=== PATIENT | male | born 1940 | race Caucasian/White ===

== ENCOUNTER → 2017-02-11 | Outpatient (CLI) | payer BC ==
[~2017-02-11] MED LIST: ASPI81TA21 PO; DOCU-94 PO; EMPA1TAB PO; FISHOIL PO; IMDSR30 PO; LSN40 PO; METO-217 PO; PRLSR20 PO; ZINC1TAB PO; ZLF/50 PO
[2017-02-11 11:14] LABS: ESTIMATED AVERAGE GLUCOSE 160 mg/dl; HA1C FLAG Normal (Normal)
[2017-02-11 11:16] LABS: ALT/SGPT 29 U/L (12-78); AST/SGOT 16 U/L (15-37); BLOOD UREA NITROGEN 18 mg/dl (7-18); BUN/CREATININE RATIO 16.5 (10-20); CARBON DIOXIDE 29 mmol/L (21-32); CHLORIDE 104 mmol/L (98-107); CHOLESTEROL 244 mg/dl (0-200); GLUCOSE 134 mg/dl (70-99); POTASSIUM 4.2 mmol/L (3.5-5.1); SODIUM 141 mmol/L (136-145); TRIGLYCERIDES 143 mg/dl (0-150); VERY LOW DENSITY LIPOPROT CALC 29 mg/dl
[2017-02-11 11:17] LABS: CALCIUM 9.6 mg/dl (8.5-10.1)
[2017-02-11 11:26] LABS: HDL CHOLESTEROL 41 mg/dl; LDL CHOLESTEROL CALCULATED 174 mg/dl; PROSTATE SPECIFIC ANTIGEN 0.647 ng/ml (0.000-4.000)
== END | disposition home or self-care (01) ==
LOC: C.LABBC 07:35
PROVIDERS: ATTEND Internal Medicine
DX: I25.10 Atherosclerotic heart disease of native coronary artery without angina pectoris (principal)

== ENCOUNTER → 2017-07-08 | Outpatient (CLI) | payer BC ==
[2017-07-08 10:57] LABS: BLOOD UREA NITROGEN 20 mg/dl (7-18); CREATININE 1.17 mg/dl (0.60-1.40); GLUCOSE 145 mg/dl (70-99)
[2017-07-08 10:58] LABS: ALT/SGPT 24 U/L (12-78); AST/SGOT 14 U/L (15-37); BUN/CREATININE RATIO 17.2 (10-20); CALCIUM 9.3 mg/dl (8.5-10.1); CARBON DIOXIDE 28 mmol/L (21-32); CHLORIDE 104 mmol/L (98-107); CHOLESTEROL 221 mg/dl (0-200); POTASSIUM 4.1 mmol/L (3.5-5.1); SODIUM 139 mmol/L (136-145); TRIGLYCERIDES 152 mg/dl (0-150); VERY LOW DENSITY LIPOPROT CALC 30 mg/dl
[2017-07-08 11:01] LABS: HDL CHOLESTEROL 44 mg/dl; LDL CHOLESTEROL CALCULATED 147 mg/dl
[2017-07-08 11:11] LABS: ESTIMATED AVERAGE GLUCOSE 157 mg/dl; HA1C FLAG Normal (Normal)
[2017-07-08 11:34] LABS: RATIO 11.4 mcg/mg (0-30.0)
== END | disposition home or self-care (01) ==
LOC: C.LABBC 08:21
PROVIDERS: ATTEND Internal Medicine
DX: E11.9 Type 2 diabetes mellitus without complications (principal); E78.5 Hyperlipidemia, unspecified

== ENCOUNTER → 2017-07-23 | Outpatient (CLI) | payer BC ==
--- NOTE | 2017-07-23 10:53 | DIAGNOSTIC IMAGING REPORT ---
THYROID ULTRASOUND HISTORY: NON TOXIC GOITER COMPARISON: Thyroid ultrasound 05/21/2016. FINDINGS: Right lobe: 4.7 x 2.0 x 2.3 cm. No change in the dominant complex nodule which demonstrates coarse peripheral and internal calcifications. This nodule measures 3.0 x 2.6 x 2.0 cm. Left lobe: 5.5 x 1.6 x 1.6 cm. No nodules. Isthmus: 4 mm in thickness. No nodules. IMPRESSION: No significant change in the dominant complex 3 cm nodule within the right thyroid lobe. No new nodules identified Electronically signed by: Kd Donald M.D. 07/23/2017 10:52 AM Dictated Date/Time: 07/23/2017 10:49 AM
== END | disposition home or self-care (01) ==
LOC: C.ULTRBC 10:10
PROVIDERS: ATTEND Internal Medicine
DX: E04.0 Nontoxic diffuse goiter (principal)

== ENCOUNTER → 2017-10-14 | Outpatient (CLI) | payer BC ==
[2017-10-14 14:35] LABS: BLOOD UREA NITROGEN 23 mg/dl (7-18)
--- NOTE | 2017-10-21 13:43 | CODING QUERY MEDICAL NECESSITY ---
CQTREATMENT RENDERED WITHOUT A DIAGNOSIS To promote full compliance with coding requirements relating to patient care, physician participation is requested in all cases of certified medical coder uncertainty. Please assist us with providing a diagnosis/symptom for the test(s) below: A diagnosis/symptom was not documented on your Order. A valid diagnosis/symptom is required to bill all insurances. Please remember that we are unable to code a diagnosis of rule out, probable, possible, questionable, or suspected. Tests that require a diagnosis: DOS 01/11/18 CLEAR FOR ARHROGRAM -- NEED DIAGNOSIS FOR ARTHROGRAM Provider Signature: Date: Thank you Dayana [facility] Information Management Once completed, please kindly fax back to [phone] For questions please call [phone]
== END | disposition home or self-care (01) ==
LOC: C.LABBC 10:09
PROVIDERS: ATTEND Orthopaedic Surgery
DX: M75.121 Complete rotator cuff tear or rupture of right shoulder, not specified as traumatic (principal)

== ENCOUNTER → 2017-11-13 | Outpatient (CLI) | payer BC ==
[2017-11-13 11:24] LABS: ALT/SGPT 30 U/L (12-78); AST/SGOT 17 U/L (15-37); BLOOD UREA NITROGEN 17 mg/dl (7-18); CALCIUM 9.1 mg/dl (8.5-10.1); CARBON DIOXIDE 30 mmol/L (21-32); CHOLESTEROL 193 mg/dl (0-200); GLUCOSE 147 mg/dl (70-99); POTASSIUM 4.1 mmol/L (3.5-5.1); SODIUM 137 mmol/L (136-145)
[2017-11-13 11:28] LABS: LDL CHOLESTEROL CALCULATED 128 mg/dl
[2017-11-13 11:39] LABS: HEMOGLOBIN A1C 7.6 % (4.5-5.6)
== END | disposition home or self-care (01) ==
LOC: C.LABBC 07:13
PROVIDERS: ATTEND Internal Medicine
DX: I10 Essential (primary) hypertension (principal); I25.10 Atherosclerotic heart disease of native coronary artery without angina pectoris; E78.5 Hyperlipidemia, unspecified; Z12.5 Encounter for screening for malignant neoplasm of prostate; E11.9 Type 2 diabetes mellitus without complications

== ENCOUNTER 2024-11-27 07:25 | Observation (INO) ==
--- NOTE | 2024-10-27 11:13 | PAT Medication Instructions ---
Medication Instructions Date of Service October 27, 2024 Home Medications Medication Instructions Recorded blood sugar diagnostic #100 ea 06/06/22 sertraline 50 mg tablet 50 mg PO QPM #90 tabs 11/29/23 isosorbide mononitrate 30 mg 30 mg PO QAM #90 tabs 12/10/23 tablet,extended release 24 hr ezetimibe 10 mg tablet 10 mg PO QPM #90 tabs 03/18/24 empagliflozin 25 mg tablet 25 mg PO QAM #90 tabs 06/04/24 (Jardiance) lisinopril 40 mg tablet 20 mg (1/2 x 40 mg) PO QAM #90 tabs 06/10/24 metoprolol succinate 25 mg 25 mg PO HS #90 tabs 07/01/24 tablet,extended release 24 hr tramadol 50 mg tablet 50 mg PO Q8H PRN knee pain #90 tabs 08/11/24 blood sugar diagnostic #100 ea 09/01/24 metformin 500 mg tablet,extended 1,000 mg (2 x 500 mg) PO BID #360 09/29/24 release 24 hr tabs omega 9-phg-iua-fish oil 1,000 mg (120 mg-180 mg) capsule (Fish Oil) 1 cap PO QAM zinc 50 mg tablet 50 mg PO QAM sertraline 50 mg tablet 50 mg PO QPM isosorbide mononitrate 30 mg tablet,extended release 24 hr 30 mg PO QAM ezetimibe 10 mg tablet 10 mg PO QPM empagliflozin 25 mg tablet (Jardiance) 25 mg PO QAM lisinopril 40 mg tablet 20 mg (1/2 x 40 mg) PO QAM metoprolol succinate 25 mg tablet,extended release 24 hr 25 mg PO HS tramadol 50 mg tablet 50 mg PO Q8H PRN knee pain metformin 500 mg tablet,extended release 24 hr 1,000 mg (2 x 500 mg) PO BID sitagliptin phosphate 25 mg tablet (Januvia) 25 mg PO QPM STOP taking 2 weeks before surgery (or as soon as possible if surgery is within 2 weeks) omega 3-qqt-lwu-fish oil 1,000 mg (120 mg-180 mg) capsule (Fish Oil) 1 cap PO QAM STOP taking 3 days before surgery empagliflozin 25 mg tablet (Jardiance) 25 mg PO QAM DO NOT take the morning of surgery zinc 50 mg tablet 50 mg PO QAM lisinopril 40 mg tablet 20 mg (1/2 x 40 mg) PO QAM metformin 500 mg tablet,extended release 24 hr 1,000 mg (2 x 500 mg) PO BID Take morning of surgery With a small sip of water, OTHERWISE NOTHING TO EAT OR DRINK AFTER MIDNIGHT: isosorbide mononitrate 30 mg tablet,extended release 24 hr 30 mg PO QAM tramadol 50 mg tablet 50 mg PO Q8H PRN knee pain (if needed) Take evening before surgery sertraline 50 mg tablet 50 mg PO QPM ezetimibe 10 mg tablet 10 mg PO QPM metoprolol succinate 25 mg tablet,extended release 24 hr 25 mg PO HS tramadol 50 mg tablet 50 mg PO Q8H PRN knee pain (if needed) metformin 500 mg tablet,extended release 24 hr 1,000 mg (2 x 500 mg) PO BID sitagliptin phosphate 25 mg tablet (Januvia) 25 mg PO QPM Other Notes If you have any questions please call us at [phone] or [phone] or [phone] or [phone]
--- NOTE | 2024-11-04 11:11 | Anesthesiology Consultation ---
Date of Service November 04, 2024 Assessment & Plan (1) Encounter for pre-operative examination: Chart Review Chart Review: Acceptable Risk for Surgery and Patient seen in Pre Admission Testing - Check BSG AM DOS - Patient NOT an ideal OPJ candidate (currently 23 hour obs) Per PAT appt on 11/04/24, no recent illness/disease exposures, illness related symptoms, or recent illness/disease positive tests. Will leave to surgeon's discretion if preop Covid testing needed Last seen by cardio 07/30/24= Presents for cardiology routine follow up. Feeling well with exception to ongoing knee pain. 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 Hopes to get knees replaced in the upcoming future. Limited activities due to knee pain. Has not experienced any limiting CP symptoms. BP well controlled. Com pliant with medications. Requests something for knee pain. Begin Tramadol PRN. Continue other meds as prescribed. Follow up with ortho surgeon for knee pain. Follow up in six months. Teaching & Discussion Pre-Anesthesia Teaching/Discussion Notes: Instructed NPO after midnight before surgery,except medications with 15 cc of water. Medication instructions provided according to the PAT guidelines. History Surgery Operation Date: 11/27/24 09:00 Proposed Procedures p Left Total Knee Arthroplasty - Robbie Michel, DO Height/Weight Height: 5 ft 11.5 in Weight: 116.4 kg Allergies Allergy/AdvReac Type Severity Reaction Status Date / Time bee venom protein (honey bee) Allergy Severe ANAPHYLAXIS Verified 10/26/24 12:17 erythromycin base Allergy Intermediate Rash Verified 11/04/24 11:14 Cazflov-PXY-DyS Reductase Allergy Intermediate PANCREATITI Verified 10/26/24 12:17 Inhibitor S [Tvanymj-Olp-Sjp Reductase Inhibitor] Medications Home Medications Medication Instructions Recorded Confirmed Last Taken omega 6-dop-mgi-fish oil 1,000 mg 1 cap PO QAM 10/08/18 10/26/24 02/13/23 (120 mg-180 mg) capsule (Fish Oil) zinc 50 mg tablet 50 mg PO QAM 10/08/18 10/26/24 02/13/23 lancets 33 gauge (OneTouch Delica #100 ea 05/12/19 09/25/24 Unknown Lancets) blood sugar diagnostic #100 ea 06/06/22 09/25/24 Unknown sertraline 50 mg tablet 50 mg PO QPM #90 tabs 11/29/23 10/26/24 Unknown isosorbide mononitrate 30 mg 30 mg PO QAM #90 tabs 12/10/23 10/26/24 Unknown tablet,extended release 24 hr ezetimibe 10 mg tablet 10 mg PO QPM #90 tabs 03/18/24 10/26/24 Unknown empagliflozin 25 mg tablet 25 mg PO QAM #90 tabs 06/04/24 10/26/24 Unknown (Jardiance) lisinopril 40 mg tablet 20 mg (1/2 x 40 mg) PO QAM #90 tabs 06/10/24 10/26/24 Unknown metoprolol succinate 25 mg 25 mg PO HS #90 tabs 07/01/24 10/26/24 Unknown tablet,extended release 24 hr tramadol 50 mg tablet 50 mg PO Q8H PRN knee pain #90 tabs 08/11/24 10/26/24 Unknown blood sugar diagnostic #100 ea 09/01/24 09/25/24 Unknown metformin 500 mg tablet,extended 1,000 mg (2 x 500 mg) PO BID #360 09/29/24 10/26/24 Unknown release 24 hr tabs sitagliptin phosphate 25 mg tablet 25 mg PO QPM 10/26/24 10/26/24 Unknown (Januvia) Wheeled Walker #1 ea 11/04/24 11/04/24 Unknown Past Medical History Medical History Arthralgia of hands, bilateral CAD in [place] artery non obstructive per 2009 cath per cardio records Degenerative spondylolisthesis Depression Diabetes mellitus, type 2 NIDDM Disc degeneration, lumbar Dyspnea on exertion "slight" GERD (gastroesophageal reflux disease) well controlled History of COVID-19 sep or oct 2021, tested at [place], not hosp; nausea, body aches>resolved Hx of seasonal allergies Hyperlipidemia Statin intolerance per records Hypertension Osteoarthritis Exercise / Class Metabolic Activity II 4-5 Yardwork/Stairs/Walk up hill (one flight of stairs- no chest pain or SOB ) Past Family History Family History Brother Family history of diabetes mellitus Hypertension Rectal cancer Colon cancer Sister Family history of diabetes mellitus Breast cancer Father Hypertension Hyperlipidemia Mother Uterine cancer Obesity Cervical cancer Uncle Myocardial infarction Denies family history of Ovarian cancer Prostate cancer Past Surgical History Surgical History History of arthroscopy rt knee History of carpal tunnel surgery of left wrist History of carpal tunnel surgery of right wrist History of colonoscopy Hx of cardiac cath 2009 @[facility] > for chest pain > no stents; f/u Dr. Coyle, [facility] Hx of left cataract extraction Hx of right cataract extraction Status post biopsy of thyroid gland benign, years ago Past Anesthesia History No Hx of Anesthesia Complications and No Family Hx of Anesthesia Complications History of PONV No Hx of PONV and No Hx of Motion Sickness Social History Smoking Status: Former smoker tobacco type: smokeless tobacco Do You Dip or Chew Tobacco: Yes (1 pouch/2-3 days- advised) Smoking End Date: years ago Hx Alcohol Use: Yes Alcohol type: beer alcohol intake frequency: holidays/special occasions only Hx Substance Use: No substance use type: does not use Review of Systems Patient denies chest pain, shortness of breath, dyspnea on exertion, cough, wheezing, palpitations. No hx of seizures, stroke, DE, apnea/snoring. No hx of blood clots or blood transfusions Physical Exam Vital Signs VITALS BP 122/70 (manually) P 60 TEMP 97.6 SP02 95% RESP 16 Constitutional no acute distress ENMT Mouth: + small oral opening; no TMJ clicking Thyromental Distance: < 3.5 Finger Breadths (3.0) Mallampati Class: II (small mouth opening ) Lower partial denture Missing molars and side teeth Neck + short neck and + thick neck; neck extension not limited Respiratory normal respiratory effort; no respiratory distress Auscultation: lungs clear to auscultation bilaterally; no wheezes Cardiovascular Rate/Rhythm: regular rate and regular rhythm Heart Sounds: no murmur Vessels: no carotid bruit Musculoskeletal Spine: no pain with cervical ROM Extremities: extremities normal to inspection Psychiatric Orientation: alert Lab Results Anesthesia Preop Results Results Anesthesia Widget: WBC 7.88 K/ul (4.8-10.8) 11/04/24 Hgb 14.2 g/dl (14.0-18.0) 11/04/24 Hct 42.8 % (42.0-52.0) 11/04/24 Plt 196 K/uL (130-400) 11/04/24 Na 137 mmol/L (136-145) 11/04/24 K 4.6 mmol/L (3.5-5.1) 11/04/24 Cl 103 mmol/L (98-107) 11/04/24 CO2 30 mmol/L (21-32) 11/04/24 BUN 21 mg/dl (6-23) 11/04/24 Creat 1.03 mg/dl (0.6-1.4) 11/04/24 Glucose Level 100 mg/dl (70-99(Fasting)) H 11/04/24 PT 10.3 Seconds (9.0-12.0) 11/04/24 PTT 27 Seconds (21-31) 11/04/24 INR 0.9 (0.9-1.1) 11/04/24 HA1c 6.8 % (4.5-5.6) H 11/04/24 Blood Type A Positive 11/04/24 Antibody Screen NEGATIVE 11/04/24 Testing Electrocardiogram Date: 11/04/24 Findings: + NSR @ (60bpm) Left axis deviation Low voltage QRS 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 As compared previous x-ray date 10/02/2021,present x-ray shows no interval changes noted. Stress Test Date: 09/18/23 Type: exercise (ECHO) Valvular Disease: no significant valvular disease Negative exercise stress ECHO and EKG for ischemia a MPHR 86%. 7.00 METS achieved No exercise induced chest pain LV is not well seen. LA mildly dilated.
[~2024-11-27 07:25] MED LIST changes: -ASPI81TA21 PO; +BUPIVACAINE 0.25% PF 30 ML VIAL ONE; +BUPIVACAINE 0.5 % 5 MG/1 ML PF 10ML VIAL ONE; +DEXAMETHASONE SOD INJ 4 MG/ML VIAL ONE; -DOCU-94 PO; -EMPA1TAB PO; +EPINEPHrine INJ 1 MG/ML AMP ONE; -FISHOIL PO; -IMDSR30 PO; +LIDOCAINE 2% 2 ML VIAL/AMP(20MG/ML) INFIL ONE; -LSN40 PO; -METO-217 PO; +MIDAZOLAM HCL 1 MG/ML 2ML VIAL ONE; +ONDANSETRON INJ 2 MG/ML 2 ML VIAL ONE; -PRLSR20 PO; +PROPOFOL IV EMULSION 10 MG/ML 20 ML VIAL IV ONE; -ZINC1TAB PO; -ZLF/50 PO; +fentaNYL citrate PF 100 MCG/2 ML VIAL ONE
[2024-11-27] MEDS: FAMOTIDINE 20 MG TAB PO SCH (07:37)
[2024-11-27] MEDS: ACETAMINOPHEN 500 MG TAB PO SCH ×2 (07:37→15:22)
[2024-11-27] MEDS: LR 60ML/HR IV SCH (07:37)
[2024-11-27] MEDS: dexAMETHasone**PF** 10 MG/ML VIAL IV SCH (07:37)
[2024-11-27] MEDS: GABAPENTIN 300 MG CAP PO SCH (07:37)
[2024-11-27] MEDS: LR 500ML BOLUS, THEN 15ML/HR IV SCH (08:03)
[2024-11-27] MEDS ORDERED: ONDANSETRON INJ 2 MG/ML 2 ML VIAL IV PRN ×2 (08:06→14:37)
[2024-11-27] MEDS ORDERED: ATROPINE SULFATE 0.1 MG/ML 10ML SYR IV PRN (08:06)
[2024-11-27] MEDS ORDERED: PROMETHAZINE HCL 6.25 MG in SODIUM CHLORIDE 0.9% 50 ML IV PRN (08:06)
[2024-11-27] MEDS ORDERED: ePHEDrine sulfate 50 MG/ML AMP IV PRN (08:06)
[2024-11-27] MEDS ORDERED: fentaNYL citrate PF 100 MCG/2 ML VIAL IV PRN (08:06)
--- NOTE | 2024-11-27 08:07 | History & Physical Bridge Note ---
Date of Service November 27, 2024 History & Physical Bridge Note I have examined the patient, reviewed the History & Physical and in the interval since the performance of the History & Physical I have noted the following changes of clinical significance: no changes noted
[2024-11-27] MEDS: TRANEXAMIC ACID 1,000 MG **IV Pre-op IV SCH (08:54)
[2024-11-27] MEDS: ceFAZolin 2000MG 2,000 MG/15 ML SYR IV SCH (09:05)
[2024-11-27] MEDS ORDERED: ePHEDrine sulfate 50 MG/5 ML SYR ONE (09:22)
[2024-11-27] MEDS: ROPIV 0.5% 246mg, Ketorolac 30mg, EPINEPHrine 0.5mg in NSS INFIL SCH (09:36)
[2024-11-27] MEDS: ORTHO JOINT ANESTHETIC ONE (09:37)
[2024-11-27] MEDS: TRANEXAMIC ACID 1,000 MG **IV Intra-op IV SCH (09:47)
--- NOTE | 2024-11-27 10:19 | Operative Report ---
PG Post Operative Report Pre & Post Diagnosis Operation Date: 11/27/24 09:00 Pre-Op Diagnosis: Arthritis Left Knee Post-Op Diagnosis: Arthritis Left Knee I identified the patient and participated in the time-out.: Yes Procedure Operation Date: 11/27/24 09:00 Actual Procedures p Left Total Knee Arthroplasty, Cemented(Left) - Robbie Michel DO Surgeon Robbie Michel DO [employer] Supervisor Gordo Ceja PA-C Estimated Blood Loss 50 Findings Consistent with Post-Op Diagnosis Specimens Left femoral and tibial bone Description of Procedure Implants used: I used a Tanvir Persona total knee arthroplasty system with a size 11 standard PS femur, F tibia, 40 oval patella, and a size 14 CPS polyethylene bearing. All components were cemented in place with Biomet cement. Endy arrived [facility] for the above procedure. He was seen in the preoperative holding area and the operative extremity was identified and signed. He was given a preoperative antibiotic, TXA, a spinal anesthetic and an adductor nerve block. He was taken back to the operating room and laid on the table in supine position. He was given basic sedation. The operative knee was then prepped and draped in sterile fashion. A timeout was done, and the patient and the operative extremity was properly identified. A midline incision was made directly over the patella. Dissection was taken down to the extensor mechanism. A medial parapatellar arthrotomy was used. The medial retinaculum was released and the fat pad was mostly excised. The knee was flexed and the ACL, PCL, and meniscus were removed. A drill was sent down the center of the femoral canal followed by an intramedullary lawrence. Off that lawrence a distal femoral cutting block was placed. 9 mm was resected off the distal femur at 5 of valgus. A posterior referencing AP sizing guide was then placed on the distal femur. The femur measured to be a size 11. 2 drill holes were placed in 3 of external rotation. A 4-in-1 cutting block was then impacted into place. Anterior, posterior, and chamfer cuts were then made. The proximal tibia was then exposed. An external tibial alignment guide was placed. A tibial cut guide was then anchored in place and the proximal tibia was then resected. The posterior aspect of the knee was then opened up and any additional meniscus fragments and osteophytes were removed. The tibia measured to be a size F. The tibial plate was then placed in the appropriate rotation and the tibia was drilled and punched. Trial components were then placed. I used a size 14 CPS polyethylene insert. The knee was brought through a full range of motion and felt to be stable. The peg holes for the femoral component were then drilled. The patella was then everted and 9 mm was resected off the posterior aspect of the patella. The patella measured to be a size 40 oval. 3 peg holes were then drilled. A trial patella was placed. The knee was once again brought through a full range of motion and felt to be stable. Trial components were then removed. The surrounding soft tissues were injected with 100 cc of an orthopedic pain control cocktail. All components were then cemented into place with Biomet cement. The final polyethylene insert was then snapped into place. Once cement was dry the tourniquet was deflated. Hemos tasis was obtained. A dilute betadyne lavage was then done for 3 minutes. The joint was then irrigated with normal saline solution. The medial parapatellar arthrotomy was then closed with #1 Vicryl suture. The skin was closed with 2-0 Vicryl, 3-0V lock suture, and cristy. A soft compressive dressing was placed. He was then transferred to a hospital bed and taken to the postanesthesia care unit in stable condition. He tolerated the procedure well. Gordo Ceja PA-C, was present for the entire procedure. He was critical for patient positioning, prepping, draping, retraction exposure, wound closure and application of sterile dressing. I attest to the content of the Intraoperative Record and any orders documented therein. Any exceptions are noted below.
--- NOTE | 2024-11-27 11:20 | XRay Report ---
XR knee LT 1 or 2V routine CLINICAL HISTORY: Surgical Post Op COMPARISON: None FINDINGS: Left knee prosthesis. No hardware complication. There is expected soft tissue gas. Skin st aples are present. There are atherosclerotic calcifications. IMPRESSION: Unremarkable postoperative exam. ACT 112: Negative or not required by law. Electronically signed by: Ganesh Elder M.D. 11/27/2024 11:18 AM
--- NOTE | 2024-11-27 13:24 | Anesthesiology Progress Note ---
Date of Service November 27, 2024 Anesthesia Post Procedure Vital Signs Vital Signs: Temp Pulse Pulse Resp BP Pulse Ox O2 Del Method 11/27/24 13:15 72 15 115/59 L 95 Room Air 11/27/24 13:00 63 19 107/54 L 98 Room Air 11/27/24 12:45 58 L 16 111/52 L 96 Room Air 11/27/24 12:30 65 20 103/51 L 95 Room Air 11/27/24 12:15 68 16 115/57 L 91 Room Air 11/27/24 12:00 57 L 17 104/47 L 91 Room Air 11/27/24 11:50 36.6 C 57 L 17 103/48 L 91 Room Air 11/27/24 11:40 57 L 17 104/47 L 91 Room Air 11/27/24 11:30 59 L 17 110/50 L 91 Room Air 11/27/24 11:20 57 L 17 114/50 L 92 Room Air 11/27/24 11:10 57 L 17 111/52 L 93 Room Air 11/27/24 11:00 62 17 98/53 L 96 Room Air 11/27/24 10:50 61 13 124/40 L 97 Room Air 11/27/24 10:43 36.1 C L 65 12 106/52 L 94 Room Air 11/27/24 07:28 36.4 C L 57 L 20 137/70 97 Room Air Pain Intensity Bilateral Knee: Pain Intensity: 3 Transfer of Care Handoff Completed per policy Notes Mental Status: alert / awake / arousable Patient Amnestic to Procedure: Yes Nausea / Vomiting: adequately controlled Pain: adequately controlled Airway Patency, RR, SpO2: stable & adequate BP & HR: stable & adequate Hydration State: stable & adequate Anesthetic Complications: no major complications apparent
[2024-11-27] MEDS ORDERED: HYDROmorphone INJ 0.5 MG/0.5 ML SYR IV PRN (14:37)
[2024-11-27] MEDS ORDERED: NALOXONE HCL 0.4 MG/1 ML VIAL/CARP IV PRN (14:37)
[2024-11-27] MEDS ORDERED: MAGNESIUM HYDROXIDE SUSP 30 ML UDC PO PRN (14:37)
[2024-11-27] MEDS ORDERED: bisacodyL 10 MG SUPP PR PRN (14:37)
[2024-11-27] MEDS ORDERED: METOCLOPRAMIDE HCL INJ 5 MG/ML 2 ML VIAL IV PRN (14:37)
[2024-11-27] MEDS ORDERED: PHARMACY GLYCEMIC MGMT CONSULT PRN (14:37)
[2024-11-27] MEDS ORDERED: oxyCODONE HCL IR 5 MG TAB (IMMEDIATE RELEASE) PO PRN (14:37)
--- NOTE | 2024-11-27 15:11 | Pharmacy Report ---
Pharmacy Glycemic Short Note 2 - Date of Service November 27, 2024 - Glycemic Short BSG Results (Last 24 hours): 11/27/24 11/27/24 11/27/24 07:32 10:47 14:36 POC Glucose 149 H 174 H 276 H OUTPATIENT ANTIDIABETIC REGIMEN: * empagliflozin 25mg PO daily * metformin 1gm PO BID * sitagliptin 25mg PO daily HbA1C: 6.8% (11/04/24) ASSESSMENT: * Pt is an 84 YOM admitted s/p left total knee arthroplasty, POD #0. History of DM2 on oral meds at home. Pharmacy consulted to assist with inpatient glycemic management. * BSGs [phone]/dl pre and post-op. Received dexamethasone 10mg IV X 1 dose preop (no ongoing steroids). Diet ordered. * Given post-op BSG >200mg/dL will give Lantus 10 units X 1 dose now and plan for an HS scale tonight depending on BSG. Novolog ACHS moderate stress scale for now. Reassess in AM. PLAN FOR INPATIENT GLYCEMIC CONTROL: * Hold outpatient oral diabetes medications * Basal insulin * Lantus 10 units SQ X 1 + HS scale * Bolus insulin * NovoLog per scale ACHS or Q6hrs while NPO * Goal Range: Low 110 mg/dL - High 140 mg/dL * Correction Factor: 20 mg/dL/unit * Nutritional / Prandial insulin per carb ratio of 1 unit per 6 grams CHO consumed
[2024-11-27] MEDS ORDERED: GLUCOSE 10 TAB/TUBE PO PRN (15:15)
[2024-11-27] MEDS ORDERED: GLUCOSE 40% GEL 15 GM TUBE PO PRN (15:15)
[2024-11-27] MEDS ORDERED: GLUCAGON FOR INJ 1 MG VIAL SQ PRN (15:15)
[2024-11-27] MEDS ORDERED: CARBOHYDRATES FOR HYPOGLYCEMIA PO PRN (15:15)
[2024-11-27] MEDS ORDERED: DEXTROSE 50% 50 ML SYRINGE IV PRN (15:15)
[2024-11-27] MEDS: KETOROLAC TROMETHAMINE 15 MG/ML VIAL IV SCH (15:22)
[2024-11-27] MEDS: LANTUS PER UNIT CHARGE SC ONE (15:23)
[2024-11-27] MEDS: ceFAZolin 1000MG 1,000 MG/7.5 ML SYR IV SCH (16:33)
[2024-11-27] MEDS: INSULIN ASPART PER UNIT CHARGE SC SCH (17:50)
[2024-11-27] MEDS ORDERED: metFORMIN HCL ER 500 MG TABCR PO SCH (21:00)
[2024-11-27] MEDS ORDERED: SITagliptin PHOSPHATE 25 MG TAB PO SCH (21:00)
[2024-11-27] MEDS: ASPIRIN 81 MG ECTAB PO SCH (21:45)
[2024-11-27] MEDS: EZETIMIBE 10 MG TAB PO SCH (21:45)
[2024-11-27] MEDS: DOCUSATE SODIUM 100 MG CAP PO SCH (21:45)
[2024-11-27] MEDS: LANTUS PER UNIT CHARGE SC SCH (21:46)
[2024-11-27] MEDS: METOPROLOL SUCC 25MG EXT REL TAB PO SCH (21:47)
[2024-11-27] MEDS: SENNA 8.6 MG TAB PO SCH (21:47)
[2024-11-27] MEDS: SERTRALINE HCL 50 MG TABLET PO SCH (21:48)
[2024-11-27 23:45] VITALS: RESP 18
[2024-11-28 03:14] VITALS: O2SAT 96
--- NOTE | 2024-11-28 07:08 | Orthopedic Progress Note ---
Date of Service November 28, 2024 Assessment & Plan (1) Status post left knee replacement: Overall he is doing fairly well. He is not having much pain in the left knee. He has been up and ambulating to the bathroom. He will be seen by physical therapy today for ambulation and range of motion exercises. The nursing staff can change his dressing after physical therapy. He is on aspirin for DVT prophylaxis. He can be discharged to home later today. He will follow-up with orthopedics in 2 weeks. Olinda Schumacher was seen and examined at bedside this morning. Overall he is doing very well. He is not having much pain in the left knee. He has been up and ambulating to the bathroom. He has no complaints.. Review of Systems All systems reviewed & are unremarkable except as noted in HPI & below. Physical Exam On physical exam of the left knee, the dressing is clean and dry. His leg is out full extension. He has active dorsiflexion plantarflexion of his left ankle.. Results & Data Results & Data Laboratory Results . Diagnostic Findings Postoperative x-rays of the left knee show the prosthesis to be in anatomic alignment without any evidence of fracture complication, or loosening.. PG Care Time/CCT Total # of Minutes Spent Total Time Spent with Patient: Total time spent is greater than 50% in coordination of care (as documented) at patient's floor/unit and/or counseling patient: Coding Level of Care Code 09202 Post Operative Follow-Up Diagnoses Status post left knee replacement Z96.652
--- NOTE | 2024-11-28 07:09 | Discharge Summary ---
Date of Service November 28, 2024 Principal Diagnosis Same as "Discharge Diagnosis" noted below under Discharge Instructions. Discharge Exam On physical exam of the left knee, the dressing is clean and dry. His leg is out full extension. He has active dorsiflexion plantarflexion of his left ankle.. Discharge Data Procedures Performed Operation Date: 11/27/24 09:00 Actual Procedures p Left Total Knee Arthroplasty, Cemented(Left) - Robbie Michel DO Ordered Studies 11/27/24 05:00 US - OR guided needle placemen Routine Hospital Course (1) Status post left knee replacement: On November 27, 2024 Ray arrived at [facility] and underwent a left knee replacement without complication. He had a spinal anesthetic. Postoperatively, he was started on aspirin for DVT prophylaxis and transferred to the general orthopedic floors. His hospital course was uneventful. On postop day #1, his vital signs were stable and his pain was well-controlled. He was able to participate well with physical therapy doing ambulation and range of motion exercises. He was then discharged to home. He will follow-up with orthopedics in 2 weeks. PG Care Time/CCT Total # of Minutes Spent Total Time Spent with Patient: Total time spent is greater than 50% in coordination of care (as documented) at patient's floor/unit and/or counseling patient: Discharge Plan Discharge Items Patient Disposition: Home - Self-Care Reason For Visit: Arthritis Knee Left Discharge Diagnosis: Left knee replacement Activity: Per Instructions section Non-emergency contact: Surgeon Call non-emergency contact if: your wound has increased redness and your wound has increased drainage Follow-up/Referrals: Pro,Jin Simental MD [Primary Care Provider] - Diet: Regular Addtl Attending Provider Instructions: Activity and Therapy Recommendations: * If you are using [facility] then therapy will be provided at your home until they feel you have accomplished all of your goals. * If you are using [facility] then Physical Therapy will be provided until they feel you are ready to start Outpatient Physical Therapy. * If you are not using home therapy then Outpatient Physical Therapy should start about 3-5 days from your day of surgery. Therapy will last about 6-10 weeks * It is important not to put a pillow under your knee when you are relaxing or sleeping. It is just as important to make sure you are getting your knee perfectly straight as it is to regain your knee bend. * You were shown a series of exercises in the hospital. Do these exercises three times each day including the exercises you were shown in physical therapy. * Get up and walk several times each day. For the first four weeks, try not to stand or walk for more than one hour at a time. If you do stand or walk for more than one hour, you will not hurt anything, but your leg will likely swell. * As you feel comfortable, you may change from the walker or crutches to a cane and then to independent walking. Medications: * Narcotic You will likely be sent home from the hospital with a prescription for the narcotic pain medication that worked best throughout your stay. * Cefadroxil -take the antibiotic twice a day for 10 days to help prevent infection. * Aspirin Most patients will be required to take Aspirin 81mg twice a day for 6 weeks after surgery. This is obtained [id number] and a prescription is not necessary. * Other medications may be prescribed for specific circumstances. If you have any questions, please call the office at . * Resume previous home medications unless otherwise instructed TEDs/Elastic Stockings: The white elastic stockings help limit swelling and prevent blood clots from forming in your legs.~ The more you wear them, the more they work. Wear them for 2 weeks. Dressing Care: The dressing can be changed after physical therapy on postop day #1. Daily dry dressing changes for a few days, especially if the incision is still draining some. If the incision is not draining then you may leave the cristy open to air. If there is a little bit of drainage or if the cristy are getting stuck on your clothing then cover the incision with a dry dressing. The cristy will be removed at your 2 week follow-up appointment. Showering: You may shower 5 days from the day of surgery as long as the incision is no longer draining. You may shower with the cristy exposed. Let soapy water run over the cristy and pat them dry. Do not scrub or soak the incision. Diet: You may resume your previous diet. Things To Watch For: * Drainage from the incision site that occurs more than one week after your surgery. * Increased redness at the incision site. * Fever above 102 degrees Fahrenheit. * Unusual chest pain or shortness of breath. * Call [facility] at with any of the above problems Follow-Up Visit: Follow-up with Dr. Michel's office 2-3 weeks after your day of surgery. We will remove your cristy and answer any questions. If you have any additional questions or concerns, Dr Michel is usually in the office at the same time and will be available An appointment was probably scheduled when you signed-up for surgery in the office. If you have any questions call Office Instructions: More detailed instructions as well as Frequently Asked Questions were provided in a folder by our office when you signed-up for surgery. Please review these instructions when you get home. If you have any further questions or concerns, please feel free to call the office at [phone] Pending Studies at Discharge: No Stand-Alone Forms: My [facility] [employer], Smoking Cessation Medications and DC Order Prescriptions: New cefadroxil 500 mg capsule 500 mg PO BID 10 Days Qty: 20 0RF aspirin [Adult Aspirin Regimen] 81 mg tablet,delayed release (DR/EC) 81 mg PO BID Qty: 84 0RF oxycodone 5 mg tablet 5 mg PO Q6H PRN (Reason: pain) Qty: 30 0RF Continued (DME) blood sugar diagnostic Strip See Dose Instructions .ROUTE .MEDSUPPLY Qty: 100 5RF Rx Instructions: As directed - test blood sugar twice daily ezetimibe 10 mg tablet 10 mg PO QPM Qty: 90 3RF Jardiance 25 mg tablet 25 mg PO QAM Qty: 90 3RF metoprolol succinate 25 mg tablet extended release 24 hr 25 mg PO HS Qty: 90 3RF tramadol 50 mg tablet 50 mg PO Q8H PRN (Reason: knee pain) Qty: 90 1RF (DME) blood sugar diagnostic Strip See Rx Instructions .Route Qty: 100 3RF Rx Instructions: twice daily one touch ultra metformin 500 mg tablet extended release 24 hr 1,000 mg PO BID Qty: 360 1RF sertraline 50 mg tablet 50 mg PO QPM Qty: 90 3RF (DME) lancets [OneTouch Delica Lancets] 33 gauge misc See Dose Instructions .ROUTE .MEDSUPPLY Qty: 100 Rx Instructions: As directed isosorbide mononitrate 30 mg tablet extended release 24 hr 30 mg PO QAM Qty: 90 3RF (DME) Wheeled Walker Misc See Rx Instructions .MEDSUPPLY Qty: 1 0RF Rx Instructions: As directed lisinopril 40 mg tablet 20 mg PO QAM Qty: 90 3RF zinc 50 mg Tablet 50 mg PO QAM omega 8-ult-oix-fish oil [Fish Oil] 1,000 mg (120 mg-180 mg) Capsule 1 cap PO QAM Januvia 25 mg tablet 25 mg PO QPM Discharge Orders: Discharge Order (Routine); Ordered 11/28/24 Ordered By: Robbie Michel Admission Data Admit Date/Time: 11/27/24 10:43 Attending Provider: Robbie Michel Admit Provider: Robbie Michel Primary Care Provider: Jin Valdez
[2024-11-28 07:27] VITALS: BP 120/60; TEMP 97.5
[2024-11-28] MEDS: MULTIVITAMIN TAB PO SCH (08:21)
[2024-11-28] MEDS: ISOSORBIDE MONO EXTENDED REL 30 MG TABCR PO SCH (08:21)
[2024-11-28] MEDS: lisinopril 20 MG TAB PO SCH (08:21)
[2024-11-28] MEDS ORDERED: EMPAGLIFLOZIN 25 MG TAB PO SCH (09:00)
[2024-11-28 10:57] VITALS: PULSE 62
== END 2024-11-28 11:34 | disposition home or self-care (01) ==
LOC: PACUINP 07:25 → ASU 07:25 → 3N 14:34